=== PATIENT | female | born 1965 | race Caucasian/White ===

== ENCOUNTER 2016-06-25 17:02 | Emergency (ER) | payer MEDICAID ==
[2016-06-25] MEDS ORDERED: Sodium Chloride 0.9% 1,000 ML IV SCH (17:14)
[2016-06-25] MEDS ORDERED: Propofol 200 MG/20 ML SDV IVPUSH ONE (17:17)
[2016-06-25] MEDS ORDERED: Fosphenytoin 1,000 MG.PE in Sodium Chloride 0.9% 50 ML IV ONE (17:17)
[2016-06-25] MEDS ORDERED: Sodium Chloride 0.9% 10 ML Syringe FLUSH PRN (17:17)
[2016-06-25] MEDS ORDERED: Sodium Chloride 0.9% 2.5 ML Syringe FLUSH PRN (17:17)
[2016-06-25] MEDS ORDERED: Succinylcholine 200 MG/10 ML MDV IV ONE (17:18)
--- NOTE | 2016-06-25 17:29 | EDM.PDOC ---
ED HPI GENERAL MEDICAL PROBLEM - General Stated Complaint: POSSIBLE STROKE Time Seen by Provider: 06/25/16 17:13 - History of Present Illness INITIAL COMMENTS - FREE TEXT/NARRATIVE: HISTORY AND PHYSICAL: History of present illness: The patient is a 51-year-old female who comes via EMS after being found unresponsive with unknown down time by her today. According to the she is a known history of insulin requiring diabetes and she also has a known history of alcohol use and drug use, methamphetamine. The states he has been incarcerated since Wednesday and has not seen her or spoken to her on the phone. EMS found her on arrival and she was unresponsive with eyes deviated to the left and some upper extremity posturing. She was breathing spontaneously and had vitals. Under arrival similar was seen by me. According to bystanders at the hotel she may have been seen walking around sometime this afternoon but on her arrival here her pants are soaked with urine and she has an old lip laceration at her right mouth. The states she has an allergy to some antibiotics but other than that he is unclear. Patient can offer no history to do to her extreme mental status The patient also is on Bactrim and Flagyl per the but he is unsure why Review of systems: As per history of present illness and below otherwise all systems reviewed and negative. Past medical history: As per history of present illness and as reviewed below otherwise noncontributory. Surgical history: As per history of present illness and as reviewed below otherwise noncontributory. Social history: No reported history of drug or alcohol abuse. Family history: As per history of present illness and as reviewed below otherwise noncontributory. Physical exam: General: Well-developed well-nourished female who is somewhat cool on touch and was close are soaked with urine and loss of bowel. Vital signs are noted by me. She has a somewhat old appearing contusion abrasion to her right lower lip which is not bleeding and she has poor dentition. She is breathing spontaneously on her own and she occasionally would blink her eyes are deviated to the left and her sclera are injected . She keeps her eyes open continuously. She is exhibiting some posturing of her upper extremities and she has a upgoing right toe. HEENT: Atraumatic, normocephalic, pupils are midrange and unreactive, lip as above, there is no evidence of any facial swelling or lesions, eyes negative for conjunctival pallor or scleral icterus, mucous membranes are dry, throat clear, neck supple, nontender, trachea midline. Lungs: Clear to auscultation some coarse breath sounds and no work or breathing but there is abdominal breathing appreciated but she is spontaneously breathing, , breath sounds equal bilaterally, chest nontender. Heart: S1S2, regular, negative for clicks, rubs, or JVD. Abdomen: Soft, nondistended, nontender. She has a well-healed midline abdominal scar of unknown etiology Negative for masses or hepatosplenomegaly. Negative for costovertebral tenderness. Pelvis: Stable nontender. Genitourinary: Deferred. Rectal: Deferred. Extremities: Atraumatic, she is very stiff in all extremities and is not moving spontaneously but there is no evidence of any gross swelling or deformities. Neuro: She is unresponsive to voice and pain and occasionally blinks and postures of the upper extremities with increased tone throughout all extremities. Eyes are deviated to the left further evaluation is on available. Back: Diagnostics: Portable chest x-ray EKG CBC CMP alcohol level CPK UA UDS lactic acid INR troponin Accu-Chek in the field was 93 Therapeutics: IV O2 monitor, fosphenytoin, flight team is present at bedside and will start antihypertensive therapy per their protocol 1715: Case was discussed with Dr. Zapata the ER physician at [facility] in [place]. He is aware of case in except for transfer and is aware that the time to transport and obtain a head CT is too lengthy at the flight team as her here at bedside and we can package in transfer. That is my plan and he is aware . Flight team will manage her blood pressure in route. Has been is aware of all of them to up to this point and that she will be transferred and the CAT scan will be performed at [place]. Anesthesia was present and performing intubation. Impression: Acute altered mental status with unknown downtime, rule out intracranial bleed, history of alcohol and drug use Definitive disposition and diagnosis as appropriate pending reevaluation and review of above. - Related Data Allergies Allergy/AdvReac Type Severity Reaction Status Date / Time cephalexin monohydrate Allergy Anaphylactic Verified 05/09/16 12:51 [From Keflex] Shock Home Meds: Home Meds Dextromethorphan/guaiFENesin [Robitussin DM] 10 ml PO Q4H PRN #1 cup 04/25/16 [ Rx] Insulin Aspart [NovoLOG] 6 unit SUBCUT TIDAC #4 pen 04/25/16 [Rx] Insulin Glargine,Hum.Rec.Anlog [Lantus Solostar] 20 unit SQ DAILY #30 ml [Rx] Lisinopril [Prinivil] 10 mg PO DAILY #30 tablet 04/25/16 [Rx] Sulfamethoxazole/Trimethoprim [IJD: Sulfamethoxazole/Trimethoprim DS] 1 tab PO BID #6 tablet 04/25/16 [Rx] metroNIDAZOLE 500 mg PO TID #90 tablet 04/25/16 [Rx] Past Medical History Gastrointestinal History: Reports: Colon polyp, Other (see below) Other Gastrointestinal History: Had operation to take part of her stomach " like gastric bypass" and few feet of her intestine was taken out with benign results [employer] History: Reports: Musculoskeletal History: Reports: Back pain, chronic, Other (see below) Other Musculoskeletal History: degenerative disc disease Psychiatric History: Reports: PTSD Other Psychiatric History: On Trazadone for a while until 2008 Endocrine/Metabolic History: Reports: Diabetes, type II - Infectious Disease History Infectious Disease History: Reports: C-difficile - Past Surgical History Head Surgeries/Procedures: Reports: None HEENT Surgical History: Reports: Tonsillectomy Female Surgical History: Reports: Breast reduction, section, Hysterectomy Musculoskeletal Surgical History: Reports: Other (see below) Other Musculoskeletal Surgeries/Procedures:: multiple spinal fusions Social & Family History - Family History Family Medical History: Noncontributory - Tobacco Use Smoking Status *Q: Light Tobacco Smoker Years of Tobacco use: 20 Packs/Tins Daily: 0.5 Second Hand Smoke Exposure: Yes - Caffeine Use Caffeine Use: Reports: None Other Caffeine Use: Rare - Alcohol Use Days Per Week of Alcohol Use: 2 Number of Drinks Per Day: 2 Total Drinks Per Week: 4 - Recreational Drug Use Recreational Drug Use: No ED ROS GENERAL - Review of Systems Review Of Systems: ROS reveals no pertinent complaints other than HPI. ED EXAM, GENERAL - Physical Exam Exam: See Below (See dictation) Course - Orders/Labs/Meds Orders: Active Orders 24 hr Category Date Time Status Cardiac Monitoring [RC] . DIRECTED Care 06/25/16 17:16 Ordered EKG Documentation Completion [RC] STAT Care 06/25/16 17:16 Ordered Oxygen Therapy, ED [RC] ASDIRECTED Care 06/25/16 17:16 Ordered Pulse Oximetry [RC] ASDIRECTED Care 06/25/16 17:16 Ordered Chest 1V Frontal [CR] Stat Exams 06/25/16 17:17 Ordered CBC WITH AUTO DIFF [HEME] Stat Lab 06/25/16 17:16 Ordered COMPREHENSIVE METABOLIC PN,CMP [CHEM] Stat Lab 06/25/16 17:16 Ordered CREATINE KINASE,CK [CHEM] Stat Lab 06/25/16 17:17 Ordered DRUG SCREEN, URINE [URCHEM] Stat Lab 06/25/16 17:17 Uncollected ETHANOL BLOOD MEDICAL [CHEM] Stat Lab 06/25/16 17:16 Ordered INR,PT,PROTHROMBIN TIME [COAG] Stat Lab 06/25/16 17:16 Ordered LACTIC ACID,WHOLE BLOOD [BG] Stat Lab 06/25/16 17:16 Ordered TROPONIN I [CHEM] Stat Lab 06/25/16 17:16 Ordered UA W/MICROSCOPIC [URIN] Stat Lab 06/25/16 17:17 Uncollected Fosphenytoin [Cerebyx] 1,000 mg.pe Med 06/25/16 17:17 Ordered Sodium Chloride 0.9% [Normal Saline] 50 ml IV NOW Sodium Chloride 0.9% [Saline Flush] Med 06/25/16 17:17 Ordered 10 ml FLUSH ASDIRECTED PRN Sodium Chloride 0.9% [Saline Flush] Med 06/25/16 17:17 Ordered 2.5 ml FLUSH ASDIRECTED PRN Saline Lock Insert [OM.PC] Stat Oth 06/25/16 17:16 Ordered Medication Orders Fosphenytoin Sodium 1,000 mg. (pe/ Sodium Chloride) 70 mls @ 150 mls/hr IV NOW ONE Stop: 06/25/16 17:44 Sodium Chloride (Saline Flush) 10 ml FLUSH ASDIRECTED PRN PRN Reason: Keep Vein Open Sodium Chloride (Saline Flush) 2.5 ml FLUSH ASDIRECTED PRN PRN Reason: Keep Vein Open Meds: Medications Generic Name Dose Route Start Last Admin Trade Name Freq PRN Reason Stop Dose Admin Fosphenytoin Sodium 1,000 mg. 70 mls @ 150 mls/hr 06/25/16 17:17 pe/ Sodium Chloride IV 06/25/16 17:44 NOW ONE Sodium Chloride 10 ml 06/25/16 17:17 Saline Flush FLUSH ASDIRECTED PRN Keep Vein Open Sodium Chloride 2.5 ml 06/25/16 17:17 Saline Flush FLUSH ASDIRECTED PRN Keep Vein Open Departure - Departure Time of Disposition: 17:29 Disposition: DC/Tfer to Acute Hospital 02 Condition: critical Clinical Impression: Altered mental status Qualifiers: Altered mental status type: unspecified Qualified Code(s): R41.82 - Altered mental status, unspecified - My Orders Last 24 Hours: My Active Orders 06/25/16 17:16 Cardiac Monitoring [RC] . DIRECTED EKG Documentation Completion [RC] STAT Oxygen Therapy, ED [RC] ASDIRECTED Pulse Oximetry [RC] ASDIRECTED CBC WITH AUTO DIFF [HEME] Stat COMPREHENSIVE METABOLIC PN,CMP [CHEM] Stat ETHANOL BLOOD MEDICAL [CHEM] Stat INR,PT,PROTHROMBIN TIME [COAG] Stat LACTIC ACID,WHOLE BLOOD [BG] Stat TROPONIN I [CHEM] Stat Saline Lock Insert [OM.PC] Stat 06/25/16 17:17 Chest 1V Frontal [CR] Stat CREATINE KINASE,CK [CHEM] Stat DRUG SCREEN, URINE [URCHEM] Stat UA W/MICROSCOPIC [URIN] Stat Fosphenytoin [Cerebyx] 1,000 mg.pe Sodium Chloride 0.9% [Normal Saline] 50 ml IV NOW Sodium Chloride 0.9% [Saline Flush] 10 ml FLUSH ASDIRECTED PRN Sodium Chloride 0.9% [Saline Flush] 2.5 ml FLUSH ASDIRECTED PRN - Assessment/Plan Last 24 Hours: My Active Orders 06/25/16 17:16 Cardiac Monitoring [RC] . DIRECTED EKG Documentation Completion [RC] STAT Oxygen Therapy, ED [RC] ASDIRECTED Pulse Oximetry [RC] ASDIRECTED CBC WITH AUTO DIFF [HEME] Stat COMPREHENSIVE METABOLIC PN,CMP [CHEM] Stat ETHANOL BLOOD MEDICAL [CHEM] Stat INR,PT,PROTHROMBIN TIME [COAG] Stat LACTIC ACID,WHOLE BLOOD [BG] Stat TROPONIN I [CHEM] Stat Saline Lock Insert [OM.PC] Stat 06/25/16 17:17 Chest 1V Frontal [CR] Stat CREATINE KINASE,CK [CHEM] Stat DRUG SCREEN, URINE [URCHEM] Stat UA W/MICROSCOPIC [URIN] Stat Fosphenytoin [Cerebyx] 1,000 mg.pe Sodium Chloride 0.9% [Normal Saline] 50 ml IV NOW Sodium Chloride 0.9% [Saline Flush] 10 ml FLUSH ASDIRECTED PRN Sodium Chloride 0.9% [Saline Flush] 2.5 ml FLUSH ASDIRECTED PRN
[2016-06-25 17:50] LABS: CHLORIDE,CL 96 mmol/L (98-110); SODIUM,NA 135 mmol/L (136-146)
--- NOTE | 2016-06-25 18:03 | PCM.SN ---
- Free Text/Narrative Note: 1700 called for intubation- pt unresponsive hypertensive spontanous respirations. 1715 preO2 with 100% O2 via Ambu bag.1719 Smooth IV induction- Propofol 200 mg IV Succinylcholine 120 mg IV given, Atraumatinc Intubation full view of vocal cords 7.5cm ET tube placed 22@lip, positive CO2 color change, bilateral breath sounds equal. ET tube secured per RT. Continue to ventilate patient with ambu bag 100% O2. Flight crew here to assume care. See [facility] for vital signs.
[2016-06-26 10:10] VITALS: BP 122/95
--- NOTE | 2016-06-26 13:50 | CR ---
EXAM DATE: 06/25/16 PATIENT'S AGE: 51 Patient: JESUS BERGER Facility: [place], [place] Site . Site : [id number] Study: XRay Chest [id number] 5:28:23 PM Ordering Physician: Enma Delcid Final Report: INDICATION: Post intubation TECHNIQUE: Chest 1 view. COMPARISON: 04/21/2016 FINDINGS: Lines and tubes: ET tube is in place with the tip 5.0 centimeters from the agustín. A feeding tube courses past the GE junction, the tip is not seen. Cardiovascular and mediastinum: Heart size and vasculature are normal in caliber and appearance. Mediastinum is within normal limits. Lungs and pleural space: Lungs are clear. No sign of infiltrate or mass. No sign of pleural effusion. No pneumothorax. Bones and soft tissues: No significant findings. IMPRESSION: The ET tube is in place with the tip 5.0 centimeters from the agustín. Dictated by Castillo Maldonado MD @ 06/25/2016 5:36:03 PM Dictated by: Castillo Maldonado MD @ 06/25/2016 17:36:08 (Electronic Signature) Report Signed by Proxy and Original Signed Document filed in the Medical Record. [facility]
== END 2016-06-25 17:40 ==
LOC: MW.ED 17:02
DX: R41.82 Altered mental status, unspecified (principal); E11.9 Type 2 diabetes mellitus without complications; F17.210 Nicotine dependence, cigarettes, uncomplicated; Z98.890 Other specified postprocedural states; Z90.710 Acquired absence of both cervix and uterus; Z79.4 Long term (current) use of insulin; Z79.899 Other long term (current) drug therapy; Z88.1 Allergy status to other antibiotic agents
CPT/HCPCS: 36415; 71010; 80053; 80305; 81001; 82550; 83605; 84484; 85025; 85610; 96360; 99291; G0480; J0330; J7040; J7050; Q2009; 31500; 99285; J2704